=== PATIENT | male | born 1950 | race Caucasian/White ===

== ENCOUNTER 2017-04-12 08:25 | Outpatient (CLI) | payer OTHER | END 2017-04-12 19:23 | disposition home or self-care (01) | LOC: SRD 08:25 | PROVIDERS: ATTEND Psychiatry & Neurology Neurology | DX: R05 Cough (principal); M47.899 Other spondylosis, site unspecified | CPT/HCPCS: 71020-TC ==

== ENCOUNTER 2020-08-08 12:47 | Outpatient (CLI) | payer OTHER | END 2020-08-08 18:56 | disposition home or self-care (01) | LOC: SRD 12:47 | PROVIDERS: ATTEND Psychiatry & Neurology Neurology | DX: M48.02 Spinal stenosis, cervical region (principal); M46.02 Spinal enthesopathy, cervical region | CPT/HCPCS: 72050-TC ==

== ENCOUNTER 2020-10-27 19:11 | Outpatient (CLI) | payer OTHER | END 2020-10-27 20:47 | disposition home or self-care (01) | LOC: SLB 19:11 | DX: Z20.828 Contact with and (suspected) exposure to other viral communicable diseases (principal) | CPT/HCPCS: C9803; U0003 ==